=== PATIENT | female | born 1960 | race Caucasian/White ===

== ENCOUNTER 2019-04-11 12:01 | Outpatient (CLI) | payer OTHER, SELFPAY ==
--- NOTE | 2019-04-11 12:16 | ECG_ITS ---
NAME OF STUDY: TREADMILL STRESS TEST INDICATION: Chest Pain EXERCISE TREADMILL STRESS ORDERING PHYSICIAN: Unknown CLINICAL INFORMATION: Chest pain INTERPRETATION: 1. The patient exercised for 8 minutes and 22 seconds on a Reece protocol. She reached a maximum heart rate of 152 beats per minute, which is 95 % of her maximum predicted heart rate. The test was stopped due to achieving the desired heart rate. 2. The baseline electrocardiogram reveals sinus rhythm rate 63 with a left atrial abnormality and one PVC. 3. With exercise, there were no ST segment changes to suggest ischemia. 4. The resting blood pressure was 139/82. The maximum blood pressure was 194/88. 5. At maximum exercise, the patient achieved 10.2 METs with a rate pressure product of 295. 6. The patient experienced no chest pain during the examination. Patient had occasional premature ventricular contractions, most uniform but on occasional multiform PVCs. There were occasional couplets noted. CONCLUSION: 1. Normal exercise treadmill test. 2. Average exercise capacity for age. 3. Mildly hypertensive blood pressure response to exercise. 4. Premature ventricular contractions which are nondiagnostic Electronically Signed On 04-11-2019 17:36:01 HARDWARE DESIGN ENGINEER by Hao Yeh M.D. [email or web address]
[2019-04-11 12:21] VITALS: BMI 21.7
[2019-04-11 13:17] VITALS: BP 134/85; PULSE 86
== END 2019-04-11 12:02 | disposition home or self-care (01) ==
LOC: CDL 12:07
PROVIDERS: Family Provider Nurse Practitioner Family; Visit Provider Nurse Practitioner Family
DX: R07.9 Chest pain, unspecified (principal)
CPT/HCPCS: 93017

== ENCOUNTER 2019-09-04 14:17 | Outpatient (CLI) | payer OTHER, SELFPAY ==
--- NOTE | 2019-09-04 | CT_ITS ---
WS: [id number] CT CHEST TECHNIQUE: Noncontrast CT of the chest with coronal and sagittal reformatted images. CLINICAL INFORMATION: . COMPARISON: None. DLP: 681.[address] scans at [facility] use at least one of these dose optimization techniques: automat ed exposure control; mA and/or kV adjustment per patient size (includes targeted exams where dose is matched to clinical indication); or iterative reconstruction. FINDINGS: Mild chronic emphysematous changes. No acute pulmonary infiltrates. Postoperative changes bilateral b reast implants. No suspicious pulmonary parenchymal abnormalities. No acute pulmonary infiltrates. No mediastinal or hilar lymphadenopathy. Thyroid gland is normal. A few low-attenuation lesions in the liver likely hepatic cysts the largest measuring 1.8 cm. Adrenal glands are normal. Normal caliber abdominal aorta. No mediastinal or hilar lymphadenopathy. Normal e ndobronchial tree. CT/CT chest wo con [id number] IMPRESSION: 1. Mild chronic emphysematous changes. 2. No mediastinal or hilar lymphadenopathy. 3. No acute pulmonary infiltrates. 4. A few low-attenuation lesions in the liver likely hepatic cysts.
== END 2019-09-04 14:18 | disposition home or self-care (01) ==
LOC: RADWPI 14:24
PROVIDERS: Family Provider Nurse Practitioner Family; PCP Nurse Practitioner Family; Visit Provider Nurse Practitioner Family
DX: R07.89 Other chest pain (principal)
CPT/HCPCS: 71250

== ENCOUNTER 2019-09-16 12:59 | Outpatient (CLI) | payer OTHER, SELFPAY ==
--- NOTE | 2019-09-16 13:04 | MM_ITS ---
WS: [id number] BILATERAL SCREENING MAMMOGRAM WITH VALETNINA DISPLACEMENT VIEWS. CAD PERFORMED. HISTORY: SCREENING COMPARISON: 05/14/2018 and 05/03/2017 Bilateral craniocaudal and mediolateral like views are performed. Valentina displacement views in CC and MLO projection also performed. Breasts composition: There are scattered areas of fibroglandular density. No suspicious masses or calcifications are identified. The implants are prepectoral and intact. No ni [place]ple retraction. MM/[id number] IMPRESSION: BI-RADS: 0-Incomplete: Need additional imaging evaluation FOLLOW-UP: Need Additional Imaging During the examination patient indicated there was a palpable abnormality upper outer quadrant of the RIGHT breast. Recommend diagnostic imaging of the RIGHT breast and possible ultrasound.
== END 2019-09-16 13:00 | disposition home or self-care (01) ==
PROVIDERS: Family Provider Nurse Practitioner Family; PCP Nurse Practitioner Family; Visit Provider Nurse Practitioner Family
DX: Z12.31 Encounter for screening mammogram for malignant neoplasm of breast (principal)
CPT/HCPCS: 77067

== ENCOUNTER 2019-10-11 10:08 | Outpatient (CLI) | payer OTHER, SELFPAY ==
--- NOTE | 2019-10-11 10:13 | US_ITS ---
WS: [id number] ADDITIONAL VIEWS RIGHT BREAST RIGHT breast ultrasound, limited HISTORY: RT BREAST LUMP COMPARISON: 09/16/2019, 05/14/2018 Compression views right CC and MLO projection. True ML also submitted. Patient does have implants. Palpable marker is placed along the superior lateral breast. There is no underlying mass or soft tissue thickening. RIGHT breast ultrasound, limited. Ultrasound is directed to the palpable abnormality. There is a very small hypoechoic area in the supe rficial soft tissue corresponding to the palpable nodule. This area measures 3 x 2 x 4 mm with no inc reased vascularity. US/US breast RT limited* [id number] IMPRESSION: BI-RADS: 2-Benign FOLLOW-UP: 1 Year Follow-up Palpable area corresponds to a superficial soft tissue nodule which may be a se baceous cyst.
== END 2019-10-11 10:09 | disposition home or self-care (01) ==
LOC: RADSHAW 10:11
PROVIDERS: PCP Nurse Practitioner Family; Visit Provider Nurse Practitioner Family
DX: N63.11 Unspecified lump in the right breast, upper outer quadrant (principal); R92.8 Other abnormal and inconclusive findings on diagnostic imaging of breast
CPT/HCPCS: 76642; 77065

== ENCOUNTER 2019-10-18 13:13 | Outpatient (CLI) | payer OTHER, SELFPAY ==
--- NOTE | 2019-10-18 13:30 | USCV_ITS ---
Emile Miguelina Age: 59 Gender: F : 1960 Exam Date: 10/18/2019 13:23 Ordering Phys: Eva Turcios MD ([email or web address]) Technologist: Saqib Mercado [place] [facility] [place]IB BP: 120 / 80 HR: 58 Rhythm: Sinus Technical Quality: Good MEASUREMENTS (Male / Female) Normal Values 2D ECHO LV Diastolic Diameter PLAX 3.9 cm 4.2 - 5.9 / 3.9 - 5.3 cm LV Systolic Diameter PLAX 2.4 cm IVS Diastolic Thickness 1.1 cm 0.6 - 1.0 / 0.6 - 0.9 cm IVS Systolic Thickness 1.4 cm LVPW Diastolic Thickness 1.1 cm 0.6 - 1.0 / 0.6 - 0.9 cm LVPW Systolic Thickness 1.2 cm LVOT Diameter 2.1 cm LV Ejection Fraction 2D Teich 70.5 % LV Ejection Fraction MOD 2C 60.0 % LV Ejection Fraction 2C AL 61.7 % LA Diameter 3.3 cm LA Width 3.4 cm LA Height 4.3 cm RA Width 3.4 cm RA Height 3.8 cm Aorta at Sinotubular Diameter 0.9 cm M-MODE LV Diastolic Diameter MM 3.7 cm 4.2 - 5.9 / 3.9 - 5.3 cm LV Systolic Diameter MM 2.0 cm LV Ejection Fraction MM Teich 77.5 % IVS Diastolic Thickness MM 0.8 cm 0.6 - 1.0 / 0.6 - 0.9 cm IVS Systolic Thickness MM 1.6 cm LVPW Diastolic Thickness MM 1.0 cm 0.6 - 1.0 / 0.6 - 0.9 cm LVPW Systolic Thickness MM 1.7 cm RV Diastolic Diameter MM 3.4 cm Aortic Annulus Diameter 3.6 cm LA Ao Ratio MM 0.9 MV E Point Septal Separation 0.6 cm DOPPLER AV Peak Velocity 144.0 cm/s LVOT Peak Velocity 118.0 cm/s AV Area Cont Eq vti 2.5 cm squared AV Area Cont Eq pk 2.8 cm squared MV Area PHT 5.0 cm squared Mitral E to A Ratio 1.0 MV E' Velocity 11.0 cm/s Mitral E to MV E' Ratio 5.8 Mitral E to LV E' Lateral Ratio 6.2 Mitral E to LV E' Septal Ratio 5.4 TR Peak Velocity 157.0 cm/s TR Peak Gradient 9.9 mmHg TV Peak E Velocity 76.0 cm/s Right Atrial Pressure 3.0 mmHg Pulmonary Artery Systolic Pressu 12.9 mmHg FINDINGS Left Ventricle Normal left ventricular size and systolic function, EF 55 %. Mild left ventricular hypertrophy. Mild hypokinesia of the basal inferior wall segment Right Ventricle The right ventricle is normal in size and function. Right Atrium The right atrium is normal in size. Left Atrium The left atrium is normal in size. Mitral Valve Thickened mitral valve. Trace mitral valve regurgitation. Aortic Valve No gross abnormalities noted Tricuspid Valve No gross abnormalities noted. Pulmonic Valve Pulmonic valve not well visualized. Pericardium Normal pericardium without effusion. Aorta Normal aortic annulus size. CONCLUSIONS Normal left ventricular size and systolic function, EF 55 %. Mild left ventricular hypertrophy. Mild hypokinesia of the basal inferior wall segment. Thickened mitral valve. Trace mitral valve regurgitation. There is no pericardial effusion. There are no intracardiac masses. No previous study is available for comparison. Dr Eva Turcios MD FACC (Electronically Signed) Final Date: 18 October 2019 17:27 S
== END 2019-10-18 13:14 | disposition home or self-care (01) ==
PROVIDERS: PCP Nurse Practitioner Family; Visit Provider Internal Medicine Cardiovascular Disease
DX: R07.89 Other chest pain (principal); I48.91 Unspecified atrial fibrillation; I05.9 Rheumatic mitral valve disease, unspecified
CPT/HCPCS: 93306

== ENCOUNTER 2021-02-22 09:20 | Outpatient (CLI) | payer OTHER, SELFPAY ==
--- NOTE | 2021-02-22 09:23 | MM_ITS ---
WS: [id number] BILATERAL SCREENING MAMMOGRAM WITH VALENTINA DISPLACEMENT VIEWS. CAD PERFORMED. HISTORY: SCREENING COMPARISON: 09/16/2019, 02/25/2015 and 04/13/2016 and 05/03/2017 Bilateral craniocaudal and mediolateral like views are performed. Valentina displacement views in CC and MLO projection also performed. Breasts composition: There are scattered areas of fibroglandular density. Implants are intact. No suspicious masses or calcifications. MM/[id number] IMPRESSION: BI-RADS: 2-Benign FOLLOW-UP: 1 Year Follow-up
== END 2021-02-22 09:21 | disposition home or self-care (01) ==
LOC: RADSHAW 09:22
PROVIDERS: PCP Nurse Practitioner Family; Visit Provider Nurse Practitioner Family
DX: Z12.31 Encounter for screening mammogram for malignant neoplasm of breast (principal)
CPT/HCPCS: 77067